=== PATIENT | male | born 1935 | race Caucasian/White ===

== ENCOUNTER 2024-11-15 14:42 | Inpatient (IN) | payer OTHER, MEDICAID ==
[2024-11-15] VITALS (10 sets, daily range): BP systolic 105–138; BP diastolic 57–78; PULSE 67–91; RESP 16–26; TEMP 97.5–98.2; O2SAT 100
[~2024-11-15] VITALS: Ht 152.4 cm; Wt 55.6 kg
--- NOTE | 2024-11-15 15:03 | ELECTROCARDIOGRAPH REPORT ---
[facility] Test Date: 2024-11-15 Test Time: 15:01:24 Pat Name: JIMMIE BURGOS Department: EMERGENCY ROOM Room: Gender: M [employer]: KH : 1935 Requested By: JOSÉ MIGUEL VERNON Order Number: [id number] Reading MD: Measurements Intervals [place] Rate: 95 P: 0 IN: 0 QRS: -58 QRSD: 106 T: 55 QT: 376 QTc: 473 Interpretive Statements Atrial fibrillation Ventricular premature complex Left anterior fascicular block Anteroseptal infarct, age indeterminate Please click the below link to view image of tracing.
[2024-11-15 15:28] LABS: BASOPHILS # (AUTO) 0.1 X10'3 (0-0.2); BASOPHILS % (AUTO) 1.8 % (0-1); EOSINOPHILS % (AUTO) 0.1 % (0-6); LYMPHOCYTES # (AUTO) 0.4 X10'3 (1.1-4.8); LYMPHOCYTES % (AUTO) 9.8 % (21-51); MEAN PLATELET VOLUME 7.8 FL (7.4-10.4); MONOCYTES # (AUTO) 0.4 X10'3 (0-0.9); MONOCYTES % (AUTO) 8.6 % (2-12); NEUTROPHILS # (AUTO) 3.2 X10'3 (1.8-7.7); NEUTROPHILS % (AUTO) 79.7 % (42-75); PLATELET COUNT 296 X10'3 (140-440); WHITE BLOOD COUNT 4.1 X10'3 (4.5-11.0)
[2024-11-15 15:47] LABS: MEAN CORPUSCULAR HEMOGLOBIN 22.8 PG (27.0-31.0); MEAN CORPUSCULAR HGB CONC 31.6 g/dL (33.0-36.5); RED CELL DISTRIBUTION WIDTH 19.6 % (11.5-14.5)
[2024-11-15 15:49] LABS: ALBUMIN 3.1 G/DL (3.4-5.0); ANION GAP 7 (8-16); BLOOD UREA NITROGEN 20 MG/DL (7-18); BUN/CREATININE RATIO 24.1 (10.0-20.0); CALCIUM 8.4 MG/DL (8.5-10.1); CHLORIDE 105 MMOL/L (99-107); CREATININE 0.83 MG/DL (0.60-1.10); GLUCOSE 157 MG/DL (70-104); HEMATOCRIT 19.4 % (42.0-52.0); HEMOGLOBIN 6.2 g/dl (14.0-17.9); POTASSIUM 4.2 MMOL/L (3.5-5.1); PRO BRAIN NATRIURETIC PEPTIDE 2167 PG/ML (0-450); SODIUM 136 MMOL/L (135-145); TOTAL CARBON DIOXIDE 23.9 MMOL/L (24-32); eCRCL 43 ML/MIN; eGFR 87 ML/MIN
[2024-11-15 16:27] LABS: NUCLEATED RED BLOOD CELLS 3 /100WBC (0-0); TOTAL CELLS COUNTED 100
[2024-11-15 16:28] LABS: ANISOCYTOSIS 2+; HYPOCHROMASIA 2+; MICROCYTOSIS 1+; PLATELET ESTIMATE NORMAL; TARGET CELLS FEW; TEAR DROP CELLS FEW
--- NOTE | 2024-11-15 16:59 | HISTORY AND PHYSICAL ---
History & Physical Providers to CC ~ History of Present Illness Reason for Admit\Complaint: Anemia History of Present Illness Patient is a pleasant 89-year-old who is very hard of hearing his ex- is at the bedside who also has no idea about the patient's history neither are able to give any history. Patient states that he went to his PCP told him his hemoglobin is 5 last week and advised him to come to the ER. He is not sure if he has had any black tarry stools or any bright red blood per rectum or any other source of bleeding. Allergies: Coded Allergies: No Known Allergies (Unverified , 11/15/24) Past Medical History Past Medical History Past medical history unable to be obtained Past surgical history unable to be obtained Social history denies any tobacco EtOH or IV drug abuse is Family history nothing of significance Allergies NKDA Review of systems unable to be obtained Exam Vitals: Vital Signs Date Time Temp Pulse Resp B/P (MAP) Pulse Ox O2 Delivery O2 Flow Rate FiO2 11/15/24 16:48 97.9 77 26 105/57 11/15/24 16:30 100 0 General: Patient is alert and oriented times unclear. Maybe it is because he is hard of hearing though his hearing aids are in place Thin cachectic gentleman with bilateral temporal wasting HEENT normocephalic nontraumatic head conjunctiva are positive for pallor sclerae anicteric CVS first and second heart sounds are positive with a systolic ejection murmur Respiratory system is clear to auscultate bilaterally no rales rhonchi crackles or wheezing Abdomen is soft scaphoid benign bowel sounds are positive nontender nondistended no masses appreciated Extremities no clubbing cyanosis or edema Neurological exam no focal deficits Diagnostic Data Last Recorded Lab Results: 11/15/24 1507 11/15/24 1507 Additional Plan Assessment and plan Anemia Etiology unclear I have asked for occult cards x3 still not done We will check micro macro panel Patient is being transfused 2 units of packed RBCs in the ER I did manage to get a hold of Dr. Winchester he has a GI doctor on-call who thinks this workup can be done as an outpatient as this is not an active bleed. We will monitor patient in the hospital May need to transferred to a higher level of care Hard of hearing Need to get a better history DVT prophylaxis with the SCDs Full code by default for now Date of Service: Nov 15, 2024 Billing Provider: CHALINO HENSLEY MD Common Visit Codes: [id number] INP/OBS CARE (HIGH) CHALINO HENSLEY MD Nov 15, 2024 16:59
[2024-11-15] MEDS ORDERED: magnesium sulf-water 4G/100mL 100 ML IV PRN (17:00)
[2024-11-15] MEDS ORDERED: potassium Cl 20 mEq SR tablet PO PRN ×2 (17:00)
[2024-11-15] MEDS ORDERED: mag hydrox/Alum hydrox/simeth 30ml oral suspension PO PRN (17:00)
[2024-11-15] MEDS ORDERED: acetaminophen 325mg tablet PO PRN (17:00)
[2024-11-15] MEDS ORDERED: magnesium Cl slow-release 64mg tablet PO PRN (17:00)
[2024-11-15] MEDS ORDERED: magnesium sulf-water 2g/50mL 50 ML IV PRN (17:00)
[2024-11-15] MEDS ORDERED: potassium Cl 40MEQ/1/2NS 520ml 520 ML IV PRN (17:00)
[2024-11-15] MEDS ORDERED: morphine 2 MG/ML inj. syringe IV PRN (17:00)
[2024-11-15] MEDS ORDERED: ondansetron/PF 4mg/2ml inj IV PRN (17:00)
--- NOTE | 2024-11-15 17:02 | Physician Documentation ---
History of Present Illness ~ General Chief Complaint: Abnormal Lab(s) Stated Complaint: "LOW ON BLOOD" Time Seen by MD: 14:53 Mode of Arrival: Ambulatory, Dropped Off History of Present Illness Initial Comments 89 year old male sent here by PCP for noted low hemoglobin on last week's laboratory studies. He reports some weakness and shortness of breath and denies any blood per rectum as well as any dark, tarry stool. Medication Reconciliation Allergies: Coded Allergies: No Known Allergies (Unverified , 11/15/24) Review of Systems All Other Systems at this time: Reviewed and Negative Physical Exam Physical Exam Vital Signs: RN Vital Signs have been reviewed: Yes, Temperature: 97.9, Source: Oral, Heart Rate: 77, Respiratory Rate: 26, BP: 105/57, Pulse Oximetry: 100, Weight: 55.600 Oxygen Flow Rate: 0 Physical Exam HEENT: PERRL, moist oral mucosa, EOMI Pulmonary: No respiratory distress Cardiac: RRR, no murmur, rub or gallop GI: nondistended, soft, nontender, no guarding, no rebound MSK: no deformity Skin: w/d/i, no rash Neuro: alert, nonfocal Psych: normal affect Progress Results/Orders Results/Orders Orders - JOSÉ MIGUEL VERNON MD Monitor (11/15/24 14:50) Saline Lock (11/15/24 14:50) Oxygen (11/15/24 14:50) BMP (11/15/24 14:50) PBNP (11/15/24 14:50) Type And Screen (11/15/24 14:50) Lrpc - No Active Bleeding (11/15/24 14:54) Lrpc - No Active Bleeding (11/15/24 15:30) Page Hospitalist (11/15/24 ) Direct Bili (11/15/24 15:07) Total Bili (11/15/24 15:07) Completed Orders - JOSÉ MIGUEL VERNON MD Cbc/Diff (11/15/24 14:50) Electrocardiogram (11/15/24 14:50) Man Diff (11/15/24 15:07) Vital Signs 11/15/24 11/15/24 11/15/24 11/15/24 14:45 15:20 15:27 16:30 Temp 97.8 Pulse 121 82 81 Resp 22 23 25 B/P (MAP) 111/64 100/50 (67) 114/67 (83) Pulse Ox 100 100 100 O2 Flow Rate 0 0 0 11/15/24 11/15/24 16:33 16:48 Temp 97.7 97.9 Pulse 85 77 Resp 22 26 B/P (MAP) 114/67 105/57 Laboratory Tests Test 11/15/24 15:07 White Blood Count 4.1 L Red Blood Count 2.70 L Hemoglobin 6.2 *L Hematocrit 19.4 *L Mean Corpuscular Volume 72.0 L Mean Corpuscular Hemoglobin 22.8 L Mean Corpuscular Hemoglobin Concent 31.6 L Red Cell Distribution Width 19.6 H Platelet Count 296 Mean Platelet Volume 7.8 Neutrophils (%) (Auto) 79.7 H Lymphocytes (%) (Auto) 9.8 L Monocytes (%) (Auto) 8.6 Eosinophils (%) (Auto) 0.1 Basophils (%) (Auto) 1.8 H Neutrophils # (Auto) 3.2 Lymphocytes # (Auto) 0.4 L Monocytes # (Auto) 0.4 Eosinophils # (Auto) 0.0 Basophils # (Auto) 0.1 CBC Comment Differential Total Cells Counted 100 Neutrophils % (Manual) 79.0 H Band Neutrophils % 2.0 Lymphocytes % (Manual) 10.0 L Monocytes % (Manual) 5.0 Basophils % (Manual) 3.0 H Nucleated Red Blood Cells 3 H Reactive Lymphocytes 1.0 H Platelet Estimate Normal Red Blood Cell Morphology Perf Hypochromasia 2+ Basophilic Stippling Anisocytosis 2+ Microcytosis 1+ Target Cells Few Tear Drop Cells Few Sodium Level 136 Potassium Level 4.2 Chloride Level 105 Carbon Dioxide Level 23.9 L Anion Gap 7 L Blood Urea Nitrogen 20 H Creatinine 0.83 Estimated GFR/1.73 m2 87 BUN/Creatinine Ratio 24.1 H Glucose Level 157 H Calcium Level 8.4 L Pro-B-Type Natriuretic Peptide 2167 H Albumin 3.1 L Chemistry Comments Medical Decision Making Findings 89 year old Departure Disposition: ADMITTED INPATIENT Admitted to Inpatient Unit: to hospitalist Admission Level of Care: Med/Surg Impression: Primary Impression: Anemia Condition: Stable Discharge Instructions: Anemia Referrals: NO PRIMARY CARE PROVIDER (PCP) Education Educated: Patient, Family Educated regarding: diagnosis, treatment, prognosis, need for follow up JOSÉ MIGUEL VERNON MD Nov 15, 2024 17:02
[2024-11-15 17:04] LABS: BILIRUBIN,DIRECT 0.2 MG/DL (0-0.3); BILIRUBIN,TOTAL 0.7 MG/DL (0.1-1.0)
[2024-11-15] MEDS: K and/or MAG REPLACEMENT MC SCH (20:00)
[2024-11-15] MEDS: docusate sod 100mg capsule PO SCH (20:00)
[2024-11-15] MEDS: dextrose 5%-1/2 normal saline 1,000 ML IV SCH (20:53)
[2024-11-16 05:00] VITALS: BP 142/91; PULSE 102; RESP 14; TEMP 98.1; O2SAT 93
[2024-11-16 06:16] LABS: BASOPHILS % (AUTO) 0.6 % (0-1); EOSINOPHILS % (AUTO) 0.2 % (0-6); HEMOGLOBIN 8.4 g/dl (14.0-17.9); LYMPHOCYTES # (AUTO) 0.6 X10'3 (1.1-4.8); LYMPHOCYTES % (AUTO) 14.2 % (21-51); MEAN CORPUSCULAR HEMOGLOBIN 24.3 PG (27.0-31.0); MEAN CORPUSCULAR HGB CONC 31.2 g/dL (33.0-36.5); MEAN CORPUSCULAR VOLUME 78.1 FL (78-98); MEAN PLATELET VOLUME 8.1 FL (7.4-10.4); MONOCYTES # (AUTO) 0.4 X10'3 (0-0.9); MONOCYTES % (AUTO) 10.5 % (2-12); NEUTROPHILS % (AUTO) 74.5 % (42-75); PLATELET COUNT 227 X10'3 (140-440); RED BLOOD COUNT 3.46 X10'6 (4.70-6.10); RED CELL DISTRIBUTION WIDTH 20.4 % (11.5-14.5); WHITE BLOOD COUNT 4.1 X10'3 (4.5-11.0)
[2024-11-16 06:36] LABS: ALANINE AMINOTRANSFERASE 22 U/L (12-78); ALBUMIN 2.7 G/DL (3.4-5.0); ALBUMIN/GLOBULIN RATIO 0.8 (1.1-1.5); ALKALINE PHOSPHATASE 107 IU/L (46-116); ANION GAP 7 (8-16); ASPARTATE AMINO TRANSFERASE 25 U/L (10-37); BILIRUBIN,TOTAL 2.6 MG/DL (0.1-1.0); BLOOD UREA NITROGEN 17 MG/DL (7-18); BUN/CREATININE RATIO 26.6 (10.0-20.0); CALCIUM 8.2 MG/DL (8.5-10.1); CHLORIDE 108 MMOL/L (99-107); CREATININE 0.64 MG/DL (0.60-1.10); FERRITIN 23 NG/ML (26-388); GLUCOSE 108 MG/DL (70-104); POTASSIUM 4.5 MMOL/L (3.5-5.1); SODIUM 140 MMOL/L (135-145); TOTAL PROTEIN 6.2 G/DL (6.4-8.2); eCRCL 55 ML/MIN; eGFR > 90 ML/MIN
[2024-11-16 07:15] LABS: % IRON SATURATION 89 % (11-46); IRON 361 UG/DL (53-167); TOTAL IRON BINDING CAPACITY 406 UG/DL (259-388)
[2024-11-16 09:42] VITALS: BP 117/63; PULSE 88; RESP 16; TEMP 98; O2SAT 92
--- NOTE | 2024-11-16 13:48 | PROGRESS NOTE ---
Daily Progress Note Providers to CC ~ Antibiotic Timeout Antibiotic Ordered?: No Subjective Chief complaint patient is still a unable to understand in spite of having hearing aids Review of systems unable to be obtained except he wants to eat Objective Vital Signs Date Time Temp Pulse Resp B/P (MAP) Pulse Ox O2 Delivery O2 Flow Rate FiO2 11/16/24 09:42 98.0 88 16 117/63 (81) 92 Room Air 11/15/24 16:30 0 Result Diagram: 11/16/24 0514 11/16/24 0514 Alert and oriented x3 no acute distress thin cachectic gentleman CVS first and second heart sounds are regular rate rhythm no murmurs gallops or rubs Respiratory system is clear to auscultate bilaterally no rales rhonchi crackles or wheezing Abdomen is soft bowel sounds are positive nontender nondistended Extremities no clubbing cyanosis or edema Problem\Assessment\Plan Assessment and plan Anemia status post 2 units of packed RBCs Etiology unclear I have asked for occult cards x3 still not done even after multiple orders occult cards still not done micro macro panel reviewed Patient is being transfused 2 units of packed RBCs in the ER Per Dr. Winchester no GI workup necessary at this time We will monitor patient in the hospital May need to transferred to a higher level of care Start a diet Hard of hearing Need to get a better history DVT prophylaxis with the SCDs Full code by default for now Date of Service: Nov 16, 2024 Billing Provider: CHALINO HENSLEY MD Common Visit Codes: [id number] INP/OBS CARE(HIGH) CHALINO HENSLEY MD Nov 16, 2024 13:48
[2024-11-16 17:10] VITALS: BP 88/52; PULSE 88
[2024-11-16] MEDS: normal saline 500ml IV soln 500 ML IV ONE (17:32)
[2024-11-16 18:00] VITALS: BP 87/48; PULSE 77; RESP 20; TEMP 98.4; O2SAT 95
[2024-11-16 18:55] VITALS: BP 100/58
[2024-11-16 22:00] VITALS: BP 97/64; PULSE 88; RESP 15; TEMP 99.5; O2SAT 97
[2024-11-17 06:17] VITALS: BP 107/61; PULSE 89; RESP 17; TEMP 97.7; O2SAT 95
[2024-11-17 06:35] LABS: BASOPHILS % (AUTO) 0.8 % (0-1); EOSINOPHILS % (AUTO) 0.2 % (0-6); HEMATOCRIT 27.2 % (42.0-52.0); HEMOGLOBIN 8.5 g/dl (14.0-17.9); LYMPHOCYTES # (AUTO) 0.6 X10'3 (1.1-4.8); LYMPHOCYTES % (AUTO) 12.9 % (21-51); MEAN CORPUSCULAR HEMOGLOBIN 24.2 PG (27.0-31.0); MEAN CORPUSCULAR HGB CONC 31.2 g/dL (33.0-36.5); MEAN CORPUSCULAR VOLUME 77.4 FL (78-98); MONOCYTES # (AUTO) 0.4 X10'3 (0-0.9); NEUTROPHILS # (AUTO) 3.7 X10'3 (1.8-7.7); NEUTROPHILS % (AUTO) 77.1 % (42-75); PLATELET COUNT 207 X10'3 (140-440); RED BLOOD COUNT 3.51 X10'6 (4.70-6.10); RED CELL DISTRIBUTION WIDTH 21.1 % (11.5-14.5); WHITE BLOOD COUNT 4.8 X10'3 (4.5-11.0)
[2024-11-17 07:09] LABS: ALANINE AMINOTRANSFERASE 19 U/L (12-78); ALBUMIN 2.5 G/DL (3.4-5.0); ALBUMIN/GLOBULIN RATIO 0.7 (1.1-1.5); ALKALINE PHOSPHATASE 103 IU/L (46-116); ANION GAP 7 (8-16); ASPARTATE AMINO TRANSFERASE 24 U/L (10-37); BLOOD UREA NITROGEN 11 MG/DL (7-18); BUN/CREATININE RATIO 14.1 (10.0-20.0); CALCIUM 7.8 MG/DL (8.5-10.1); CHLORIDE 109 MMOL/L (99-107); CREATININE 0.78 MG/DL (0.60-1.10); GLUCOSE 99 MG/DL (70-104); MAGNESIUM 1.9 MG/DL (1.5-2.4); POTASSIUM 3.8 MMOL/L (3.5-5.1); SODIUM 138 MMOL/L (135-145); TOTAL CARBON DIOXIDE 22.3 MMOL/L (24-32); eCRCL 45 ML/MIN; eGFR > 90 ML/MIN
[2024-11-17 07:22] LABS: ANISOCYTOSIS 3+; MICROCYTOSIS 1+; PLATELET ESTIMATE NORMAL
[2024-11-17 07:23] LABS: POIKILOCYTOSIS FEW
--- NOTE | 2024-11-17 08:59 | PROGRESS NOTE ---
Daily Progress Note Providers to CC ~ Antibiotic Timeout Antibiotic Ordered?: No Subjective Chief complaint none Patient is very hard of hearing and very difficult to communicate in spite of his hearing aids Objective Vital Signs Date Time Temp Pulse Resp B/P (MAP) Pulse Ox O2 Delivery O2 Flow Rate FiO2 11/17/24 06:17 97.7 89 17 107/61 (76) 95 Room Air 11/15/24 16:30 0 Result Diagram: 11/17/24 0540 11/17/24 0540 Alert and oriented x3 no acute distress thin cachectic gentleman CVS first and second heart sounds are regular rate rhythm no murmurs gallops or rubs Respiratory system is clear to auscultate bilaterally no rales rhonchi crackles or wheezing Abdomen is soft bowel sounds are positive nontender nondistended Extremities no clubbing cyanosis or edema Problem\Assessment\Plan Assessment and plan Anemia status post 2 units of packed RBCs Etiology unclear I have asked for occult cards x3 still not done even after multiple orders occult cards still not done micro macro panel reviewed Patient is being transfused 2 units of packed RBCs in the ER Per Dr. Winchester no GI workup necessary at this time We will monitor patient in the hospital May need to transferred to a higher level of care Start a diet Hard of hearing Need to get a better history DVT prophylaxis with the SCDs Full code by default for now Date of Service: Nov 17, 2024 Billing Provider: CHALINO HENSLEY MD Common Visit Codes: [id number] INP/OBS CARE(HIGH) CHALINO HENSLEY MD Nov 17, 2024 08:58
[2024-11-17 10:30] VITALS: BP 104/62; PULSE 101; RESP 19; TEMP 99; O2SAT 95
[2024-11-17] MEDS ORDERED: NO HOME MEDS (12:55)
[2024-11-17 19:11] VITALS: BP 106/59; PULSE 87; RESP 17; TEMP 98.4; O2SAT 94
[2024-11-17 19:14] VITALS: RESP 17; O2SAT 94
[2024-11-17] MEDS: magnesium hydroxide 30ml (MOM) UD suspension PO PRN (20:27)
[2024-11-17 22:00] VITALS: BP 121/66; PULSE 96; RESP 18; TEMP 99.2; O2SAT 96
[2024-11-18 06:00] VITALS: BP 120/63; PULSE 63; RESP 23; TEMP 97.5; O2SAT 96
[2024-11-18 06:23] LABS: ABSOLUTE RETICS # 64000 /CUMM (23000-93000); BASOPHILS % (AUTO) 0.8 % (0-1); EOSINOPHILS % (AUTO) 0.4 % (0-6); HEMOGLOBIN 8.4 g/dl (14.0-17.9); LYMPHOCYTES # (AUTO) 0.6 X10'3 (1.1-4.8); LYMPHOCYTES % (AUTO) 14.5 % (21-51); MEAN CORPUSCULAR HEMOGLOBIN 24.4 PG (27.0-31.0); MEAN CORPUSCULAR VOLUME 78.6 FL (78-98); MEAN PLATELET VOLUME 7.9 FL (7.4-10.4); MONOCYTES # (AUTO) 0.4 X10'3 (0-0.9); MONOCYTES % (AUTO) 10.1 % (2-12); NEUTROPHILS # (AUTO) 3.3 X10'3 (1.8-7.7); NEUTROPHILS % (AUTO) 74.2 % (42-75); PLATELET COUNT 206 X10'3 (140-440); RED BLOOD COUNT 3.43 X10'6 (4.70-6.10); RED CELL DISTRIBUTION WIDTH 21.6 % (11.5-14.5); RETICULOCYTE % (AUTO) 1.9 % (0.5-1.5); WHITE BLOOD COUNT 4.4 X10'3 (4.5-11.0)
[2024-11-18 07:03] LABS: ALANINE AMINOTRANSFERASE 18 U/L (12-78); ALBUMIN 2.5 G/DL (3.4-5.0); ALBUMIN/GLOBULIN RATIO 0.7 (1.1-1.5); ALKALINE PHOSPHATASE 99 IU/L (46-116); ANION GAP 5 (8-16); ASPARTATE AMINO TRANSFERASE 20 U/L (10-37); BILIRUBIN,DIRECT 0.3 MG/DL (0-0.3); BILIRUBIN,TOTAL 0.9 MG/DL (0.1-1.0); BLOOD UREA NITROGEN 10 MG/DL (7-18); BUN/CREATININE RATIO 14.7 (10.0-20.0); CHLORIDE 110 MMOL/L (99-107); CREATININE 0.68 MG/DL (0.60-1.10); GLUCOSE 85 MG/DL (70-104); LACTATE DEHYDROGENASE 150 U/L (85-227); SODIUM 139 MMOL/L (135-145); TOTAL PROTEIN 5.9 G/DL (6.4-8.2); eCRCL 52 ML/MIN; eGFR > 90 ML/MIN
[2024-11-18 10:00] VITALS: BP 104/55; PULSE 102; RESP 19; TEMP 97.7; O2SAT 92
[2024-11-18 14:13] LABS: OCCULT BLOOD STOOL NEGATIVE (Neg)
[2024-11-18] MEDS ORDERED: FERR324T4 PO (14:51)
[2024-11-18] MEDS ORDERED: PANT40TA54 PO (14:51)
[2024-11-18] MEDS ORDERED: MULT-1085 PO (14:52)
[2024-11-19 08:17] LABS: HAPTOGLOBIN 103 mg/dL (38-329)
== END 2024-11-18 17:31 | disposition home health service (06) | DRG 812 ==
LOC: ER 14:43 → ED HOLD 17:05 → ORTHO 4S 21:15
PROVIDERS: ADMIT Internal Medicine; ATTEND Internal Medicine
PROC: 30233N1 Transfusion of Nonautologous Red Blood Cells into Peripheral Vein, Percutaneous Approach (ICD-10-PCS; principal; 2024-11-15)
DX: D64.9 Anemia, unspecified (principal)
CPT/HCPCS: 36415; 36430; 80048; 80053; 82247; 82248; 82272; 82607; 82728; 83010; 83540; 83550; 83615; 83735; 83880; 85007; 85008; 85025; 85045; 86157; 86880; 86885; 86900; 86901; 86920; 87081; 93005; 97116; 97161; 97530; 99285; G0378; J7040; P9016